=== PATIENT | female | born 1955 | race Caucasian/White ===

== ENCOUNTER → 2023-06-13 12:54 | Outpatient (REF) | payer MEDICARE, OTHER, SELFPAY | LOC: WDC 12:54 | PROVIDERS: ATTENDING PHYSICIAN Family Medicine | DX: M85.852 Other specified disorders of bone density and structure, left thigh (principal); Z13.820 Encounter for screening for osteoporosis; Z78.0 Asymptomatic menopausal state; Z12.31 Encounter for screening mammogram for malignant neoplasm of breast | CPT/HCPCS: 77063; 77067; 77080 ==

== ENCOUNTER → 2023-08-01 09:29 | Outpatient (REF) | payer MEDICARE, OTHER, SELFPAY | LOC: RAD 09:29 | PROVIDERS: ATTENDING PHYSICIAN Registered Nurse | DX: M25.532 Pain in left wrist (principal); M25.511 Pain in right shoulder | CPT/HCPCS: 73030; 73110 ==

== ENCOUNTER → 2025-02-25 15:32 | Outpatient (REF) | payer MEDICARE, OTHER, SELFPAY ==
[2025-02-25 17:02] LABS: TSH 1.21 uIU/ml (0.47-4.68)
== END ==
LOC: REG 15:32
PROVIDERS: ATTENDING PHYSICIAN Internal Medicine Endocrinology, Diabetes & Metabolism; FAMILY PHYSICIAN Internal Medicine
DX: E03.9 Hypothyroidism, unspecified (principal); E04.1 Nontoxic single thyroid nodule; R94.6 Abnormal results of thyroid function studies
CPT/HCPCS: 36415; 84439; 84443